=== PATIENT | male | born 1955 | race Caucasian/White ===

== ENCOUNTER → 2018-10-03 | Outpatient (CLI) | payer OTHER, MEDICARE | LOC: GIMAGING 18:01 | PROVIDERS: ATTEND Family Medicine | DX: S62.324A Displaced fracture of shaft of fourth metacarpal bone, right hand, initial encounter for closed fracture (principal) | CPT/HCPCS: 73130-PO ==

== ENCOUNTER 2018-11-08 20:22 | Emergency (ER) | payer OTHER, MEDICARE ==
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
[2018-11-08 21:55] VITALS: BP 154/87
== END 2018-11-08 21:55 | disposition home or self-care (01) ==
LOC: EDUNIT#
DX: E11.649 Type 2 diabetes mellitus with hypoglycemia without coma (principal); I10 Essential (primary) hypertension